=== PATIENT | female | born 1985 | race Caucasian/White ===

== ENCOUNTER 2019-07-18 21:49 | Emergency (ER) | payer OTHER ==
[2019-07-18 22:01] VITALS: BP 110/54; PULSE 61; TEMP 98.3; BMI 32.1
[2019-07-18] MEDS ORDERED: DEXAMETHASONE LIQUID 0.5 MG/5 ML PO ONE (22:25)
[2019-07-18] MEDS ORDERED: ALBUTEROL SO4 2.5/IPRATROPIUM 0.5 INH SOL 3 ML VIAL.NEB. NEB ONE (22:26)
[2019-07-18] MEDS ORDERED: ALBUTEROL SO4 2.5/IPRATROPIUM 0.5 INH SOL 3 ML VIAL.NEB. NEB SCH (22:30)
--- NOTE | 2019-07-18 22:32 | PDOC ---
History of Present Illness - General Chief Complaint: Asthma Stated Complaint: ASTHMA Time Seen by Provider: 07/18/19 22:12 - History of Present Illness Initial Comments: 07/18/19 22:28 33-year-old female presents for evaluation of asthma exacerbation minimally relieved with friends inhaler Past History - Past Medical History Allergies/Adverse Reactions: Allergies Allergy/AdvReac Type Severity Reaction Status Date / Time No Known Drug Allergies Allergy Verified 07/18/19 21:56 peach Allergy Verified 07/18/19 21:56 Home Medications: Ambulatory Orders Albuterol 0.083% Nebulizer Tania [Ventolin 0.083% Nebulizer Soln -] 1 neb NEB Q4H PRN #20 vial 07/18/19 Albuterol Sulfate Inhaler - [Ventolin HFA Inhaler -] 1 - 2 inh PO Q4H #1 inhaler 07/18/19 Asthma: Yes Cancer: No Cardiac Disorders: No COPD: No Diabetes: No HTN: No Seizures: No Thyroid Disease: No - Reproductive History Tubal Ligation: No - Immunization History Immunization Up to Date: Yes - Suicide/Smoking/Psychosocial Hx Smoking Status: No Smoking History: Never smoked Have you smoked in the past 12 months: No Number of Cigarettes Smoked Daily: 0 Information on smoking cessation initiated: No Hx Alcohol Use: No Drug/Substance Use Hx: No Substance Use Type: None Hx Substance Use Treatment: No Review of Systems - Review of Systems Respiratory: Yes: Cough, Wheezing *Physical Exam - Vital Signs Last Vital Signs Temp Pulse Resp BP Pulse Ox 98.3 F 61 16 110/54 L 100 07/18/19 21:56 07/18/19 21:56 07/18/19 21:56 07/18/19 21:56 07/18/19 21:56 - Physical Exam Comments: 07/18/19 22:32 HEAD: NC/AT EYES: Conjuntiva clear Ears: Canals and TM's normal NOSE: No d/c THROAT: Moist mucous membrances, oral pharanx clear, uvula midline NECK: Supple without adenopathy CARDIAC: S1 S2 LUNGS: Decreased breath sounds at the bases otherwise clear ABDOMEN: Soft NT ND MS: Full ROM in all joints without edema NEUROLOGIC: No gross sensory or motor deficits, NVID SKIN: Normal color and temperature no lesions or rashes Medical Decision Making - Medical Decision Making 07/18/19 22:48 Patient cleared after one DuoNeb full equal breath sounds no wheezing *DC/Admit/Observation/Transfer Diagnosis at time of Disposition: Asthma exacerbation - Discharge Dispostion Disposition: HOME Condition at time of disposition: Stable Decision to Admit order: No - Prescriptions Prescriptions: Albuterol 0.083% Nebulizer Tania [Ventolin 0.083% Nebulizer Soln -] 1 neb NEB Q4H PRN #20 vial PRN Reason: Wheezing Albuterol Sulfate Inhaler - [Ventolin HFA Inhaler -] 1 - 2 inh PO Q4H #1 inhaler - Referrals Referrals: Shirley Abreu MD [Staff Physician] - - Patient Instructions Printed Discharge Instructions: Asthma -- Adult - Post Discharge Activity
[2019-07-18] MEDS ORDERED: DEXAMETHASONE SOD PHOSPHATE 10 MG/1 ML VIAL ONE (22:33)
== END 2019-07-18 22:57 | disposition home or self-care (01) ==
LOC: JERFT 21:49
PROC: 3E0F7GC Introduction of Other Therapeutic Substance into Respiratory Tract, Via Natural or Artificial Opening (ICD-10-PCS; principal; 2019-07-18)
DX: J45.901 Unspecified asthma with (acute) exacerbation (principal)
CPT/HCPCS: 94640; 99281-25

== ENCOUNTER 2019-09-20 04:58 | Day surgery (SDC) | payer OTHER ==
[2019-09-15 11:14] VITALS: BMI 30.6
--- NOTE | 2019-09-20 06:54 | HP ---
History & Physical Update - Physical Physical: No Change - Assessment Assessment: No Change - Plan Plan: No Change (H&P reviwed , no changes)
--- NOTE | 2019-09-20 07:03 | HP ---
Past Medical History - Primary Care Physician PCP:: Dennis Dey - Admission Chief Complaint: hx of high grade FRANTZ, for leep cone History of Present Illness: 33 yo f with hx of high grade FRANTZ of cervix for leep cone, risks associated withprocedure has discussed with patient, infection, bleeding, cervical incompetency, loss, cervical stenosis, infertility.injury to surrounding tissue History Source: Patient Limitations to Obtaining History: No Limitations - Past Medical History Pulmonary: Yes: Asthma ...: 0 ...Para: 0 - Past Surgical History Hx Myomectomy: No Hx Transabdominal Cerclage: No - Smoking History Smoking history: Never smoked Have you smoked in the past 12 months: No Aproximately how many cigarettes per day: 0 - Alcohol/Substance Use Hx Alcohol Use: Yes (OCC) - Social History History of Recent Travel: No Home Medications - Allergies Allergies/Adverse Reactions: Allergies Allergy/AdvReac Type Severity Reaction Status Date / Time almond Allergy Swelling Verified 09/15/19 11:15 No Known Drug Allergies Allergy Verified 07/18/19 21:56 peach Allergy Verified 07/18/19 21:56 - Home Medications Home Medications: Ambulatory Orders Albuterol Sulfate Inhaler - [Ventolin HFA Inhaler -] 1 - 2 inh PO Q4H #1 inhaler 07/18/19 Ibuprofen [Motrin -] 600 mg PO TID #21 tablet 09/20/19 Review of Systems - Review of Systems Constitutional: reports: No Symptoms Eyes: reports: No Symptoms HENT: reports: No Symptoms Neck: reports: No Symptoms Cardiovascular: reports: No Symptoms Respiratory: reports: No Symptoms Gastrointestinal: reports: No Symptoms Genitourinary: reports: No Symptoms Breasts: reports: No Symptoms Reported Musculoskeletal: reports: No Symptoms Integumentary: reports: No Symptoms Neurological: reports: No Symptoms Endocrine: reports: No Symptoms Hematology/Lymphatic: reports: No Symptoms Psychiatric: reports: No Symptoms 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 Constitutional: Yes: Well Nourished, No Distress, Calm Eyes: Yes: WNL, Conjunctiva Clear, EOM Intact HENT: Yes: WNL, Atraumatic, Normocephalic Neck: Yes: WNL, Supple, Trachea Midline Cardiovascular: Yes: WNL, Regular Rate and Rhythm Respiratory: Yes: WNL, Regular, CTA Bilaterally Gastrointestinal: Yes: WNL ...Rectal Exam: Yes: WNL Renal/: Yes: WNL Pelvis: Yes: WNL External Genitalia: Yes: Normal Vaginal Exam: Yes: Normal Cervix: Yes: Normal Uterus: Yes: Normal Adnexa: Not Palpable: Left, Right Breast(s): Yes: WNL Musculoskeletal: Yes: WNL Extremities: Yes: WNL Edema: No Integumentary: Yes: WNL Neurological: Yes: WNL, Alert, Oriented ...Motor Strength: WNL Psychiatric: Yes: WNL, Alert, Oriented Problem List - Problem (1) 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
[2019-09-20] MEDS ORDERED: LIDOCAINE HCL/PF 2% SDV 5ML VIAL ONE (09:19)
[2019-09-20] MEDS ORDERED: PROPOFOL 20 ML ONE (09:19)
[2019-09-20] MEDS ORDERED: MIDAZOLAM HCL 2 MG/2 ML SINGLE DOSE VIAL ONE (09:19)
[2019-09-20] MEDS ORDERED: DEXAMETHASONE SOD PHOSPHATE 4 MG/1 ML VIAL ONE (09:57)
[2019-09-20] MEDS ORDERED: ONDANSETRON 4 MG/2 ML VIAL IVPUSH PRN ×2 (10:09→10:25)
[2019-09-20] MEDS ORDERED: oxyCODONE HCL 5 MG TABLET PO PRN ×2 (10:09→10:25)
[2019-09-20] MEDS ORDERED: metroNIDAZOLE 0.75% VAGINAL GEL 70 GM TUBE ONE (10:11)
[2019-09-20] MEDS ORDERED: LACTATED RINGERS SOLUTION 1,000 ML IV SCH (10:15)
[2019-09-20] MEDS ORDERED: IBUPROFEN 800 MG/8 ML IJ IVPB PRN (10:25)
[2019-09-20] MEDS ORDERED: IBUPROFEN 600 MG TABLET (FP) PO PRN (10:25)
[2019-09-20] MEDS ORDERED: ELECTROLYTE-148 SOLN 1,000 ML IV SCH (10:30)
--- NOTE | 2019-09-20 10:30 | OP ---
Operative Note - Note: Operative Date: 09/20/19 Pre-Operative Diagnosis: hGSIL Operation: leep cone, Ecc Findings: cx no gross lesion Post-Operative Diagnosis: Same as Pre-op Surgeon: Dennis Dey Anesthesia: General Specimens Removed: cone biopsy .ECC Estimated Blood Loss (mls): 50 Drains & Tubes with Location: none Blood Volume Replaced (mls): 0 Operative Report Dictated: Yes
[2019-09-20 16:48] VITALS: BP 123/67; PULSE 96; TEMP 97.9
--- NOTE | 2019-09-21 19:25 | PATH ---
Surgical Pathology Report Patient Name: LOU ROSAS [facility]. Rec. #: [id number] /Age/Gender: 1985 (Age: 33) / F Account: [id number] Location: [facility] SURGICAL Taken: 09/20/2019 Received: 09/20/2019 Reported: 09/21/2019 Physicians: Dennis Dey M.D. Specimen(s) Received A: CERVICAL CONE B: ENDOCERVICAL CURETTINGS Clinical History Cervical dysplasia Final Diagnosis A. CONE BIOPSY: CERVICAL TISSUE SHOWING FABIEN 3 (CERVICAL INTRAEPITHELIAL NEOPLASIA GRADE 3) WITH GLANDULAR INVOLVEMENT. FABIEN 3 PRESENT AT CAUTERIZED MARGIN. SEPARATE DETACHED SQUAMOUS EPITHELIUM WITH FABIEN 3 IDENTIFIED. B. ENDOCERVICAL CURETTING: ENDOCERVICAL TISSUE, NEGATIVE FOR DYSPLASIA. Electronically Signed Linda Ramirez M.D. Gross Description A. Received in formalin labeled "cone biopsy," is a 2.1 cm in diameter by 0.7 cm in depth annular, unoriented portion of tissue, consistent with a cervical cone biopsy. The specimen is inked green, serially sectioned and entirely and sequentially submitted in 4 cassettes. B. Received in formalin labeled "endocervical curettings," is a 0.8 x 0.8 x 0.2 cm aggregate of blood-tinged mucus, possibly containing soft tissue fragments. The formalin is filtered and the specimen is entirely submitted in one cassette. DL/09/20/2019 saudi/09/20/2019
--- NOTE | 2019-10-25 11:16 | OP ---
DATE OF OPERATION: 09/20/2019 PREOPERATIVE DIAGNOSIS: High-grade cervical intraepithelial lesion of the cervix. PROCEDURE: Loop electrocautery excision procedure cone and endocervical curettage. SURGEON: Dennis Dey MD ANESTHESIA: General. ESTIMATED BLOOD LOSS: 50 mL. DESCRIPTION OF PROCEDURE: Patient was taken to the operating room under adequate general anesthesia in dorsal lithotomy position. Examination under anesthesia revealed external genitalia to be normal. Vagina was normal. Cervix was clean. No gross lesions seen. Cervix was free and mobile. Uterus was normal size. Adnexa, no masses were palpable. Then with a glass speculum in the vagina, vagina and cervix were saturated with 4% acetic acid and area of FABIEN was visualized on the cervix and then cervix also was saturated with Lugol solution and area of the FABIEN was demarcated. Then with a large LEEP cone, biopsy was done. The entire lesion was excised. Then the cone edges were cauterized with ball cautery and then the cone cavity also was cauterized with ball cautery, and hemostasis was established. Then the Monsel solution was applied onto the cone area. No active bleeding was seen. All the lap pad, sponge counts were correct. Patient tolerated the procedure well, left the OR in good condition. Pelon [id number]
== END 2019-09-20 17:09 | disposition home or self-care (01) ==
LOC: JASU-SURG 04:58
PROVIDERS: ATTEND Obstetrics & Gynecology
PROC: 0UBC7ZX Excision of Cervix, Via Natural or Artificial Opening, Diagnostic (ICD-10-PCS; principal; 2019-09-20 09:45)
DX: D06.7 Carcinoma in situ of other parts of cervix (principal)
CPT/HCPCS: 84703; 88305-TC; 88307-TC; 94760

== ENCOUNTER 2021-05-15 12:03 | Emergency (ER) | payer OTHER ==
[2021-05-15 12:22] VITALS: BP 104/68; PULSE 83; TEMP 98.2; BMI 30.6
== END 2021-05-15 13:27 | disposition home or self-care (01) ==
LOC: JERFT 12:03
DX: S93.402A Sprain of unspecified ligament of left ankle, initial encounter (principal)
CPT/HCPCS: 73610-TC-LT-FY; 73630-TC-LT; 99283-25